=== PATIENT | male | born 2000 | race Caucasian/White ===

== ENCOUNTER 2022-02-25 15:00 | Emergency (ER) | payer OTHER, SELFPAY ==
--- NOTE | 2022-02-25 15:06 | ED.URI ---
HPI - URI/Sore Throat General Chief Complaint: Upper Respiratory Infection Stated Complaint: cold/flu Time Seen by Provider: 02/25/22 15:07 Source: patient and RN notes reviewed History of Present Illness HPI Narrative: patient is a 21-year-old male who presents to urgent care with complaints of flu-like symptoms that started yesterday with cough, runny nose, headache and body aches. Patient also reports of a sore throat. Denies any use of gtam-wgw-dillogu medication. Denies any known fevers. Denies any nausea or vomiting. No other acute complaints. No acute distress noted. Patient aware of the plan of care. Some parts of this dictation were generated by voice recognition software and may contain typographical and/or grammatical inaccuracies. Related Data Home Medications Medication Instructions Recorded Confirmed No Home Medications 02/25/22 02/25/22 Allergies Allergy/AdvReac Type Severity Reaction Status Date / Time No Known Allergies Allergy Verified 02/25/22 15:10 Review of Systems Review of Systems: CONSTITUTIONAL: Denies fever, chills, or sweats. EYES: Denies visual changes, redness, or discharge. ENT: Reports rhinorrhea, congestion, sore throat CARDIOVASCULAR: Denies chest pain, palpitations, or edema. RESPIRATORY: Denies cough or dyspnea. GASTROINTESTINAL: Denies abdominal pain, nausea, vomiting, or diarrhea. GENITOURINARY: Denies dysuria or hematuria. SKIN: Denies rash or itching. MUSCULOSKELETAL: Denies back pain, joint pain. Reports body aches NEUROLOGIC: reports of headache All other systems reviewed are negative, except as documented in HPI. PMFSH Comments At the time of my signature, I reviewed and agree with the nursing past medical, surgical, social, and family history. There is no relevant family history pertinent to the patient complaint. Exam Narrative: GENERAL: This is a well-nourished, well-developed patient, in no apparent distress. HEAD: normocephalic, atraumatic. EYES: PERRL. Sclera clear/white. Vision is grossly intact. EARS: External ears normal, auditory canals clear and without drainage, TMs normal without perforation. Hearing grossly intact. NOSE: External nose normal with no obvious nasal discharge, nares without redness, clear to yellow rhinorrhea. THROAT: Mucous membranes moist, mild erythema to posterior pharynx with moderate postnasal drainage NECK: Neck supple, non-tender without lymphadenopathy CARDIOVASCULAR: Regular rate and rhythm without murmurs, gallops, or rubs. RESPIRATORY: Clear to auscultation. Breath sounds equal bilaterally. No wheezes, rales, or rhonchi. SKIN: warm, intact with no suspicious lesions or rash, good texture and turgor. NEURO: awake, alert, and oriented to person, place and time. There were no obvious focal neurologic abnormalities. EXTREMITIES: No clubbing, cyanosis, or edema. Course Course Level of Care: Express Care Visit Vital Signs Vital signs: Vital Signs Temperature 98.1 F 02/25/22 15:08 Pulse Rate 101 H 02/25/22 15:08 Respiratory Rate 16 02/25/22 15:08 Blood Pressure 133/69 02/25/22 15:08 Pulse Oximetry 100 02/25/22 15:08 Oxygen Delivery Room Air 02/25/22 15:08 Temperature 98.1 F 02/25/22 15:08 Pulse Rate 101 H 02/25/22 15:08 Respiratory Rate 16 02/25/22 15:08 Blood Pressure 133/69 02/25/22 15:08 Pulse Oximetry 100 02/25/22 15:08 Oxygen Delivery Room Air 02/25/22 15:08 reviewed MDM - URI/Sore Throat MDM Narrative Medical decision making narrative: reviewed lab results with the patient. He is aware the flu swab was negative. Symptoms are consistent with a common cold/ viral upper respiratory infection. Advised patient to treat his symptoms as needed with ltkp-rii-ooyxdek medication such as a daily antihistamine, Tylenol/ibuprofen, Benadryl, and Mucinex. Increase water intake and rest. Use a humidifier at night. Follow-up with your PCP within 2-5 days or for worsening symp
[2022-02-25 15:08] VITALS: BP 133/69; PULSE 101; RESP 16; TEMP 36.7; O2SAT 100
== END 2022-02-25 15:44 | disposition home or self-care (01) ==
PROVIDERS: Emergency Provider Nurse Practitioner Family
DX: J06.9 Acute upper respiratory infection, unspecified (principal)
CPT/HCPCS: 87804; 99213; G0463